=== PATIENT | male | born 1960 | race Caucasian/White ===

== ENCOUNTER 2022-06-17 12:55 | Emergency (ER) | payer SELFPAY ==
[2022-06-17 13:06] VITALS: BP 143/97
[2022-06-17 15:31] LABS: Basophils % (Auto) 0.5 % (0.0-1.8); Eosinophils # (Auto) 0.1 K/mm3 (0.0-0.4); Eosinophils % (Auto) 0.9 % (0.0-4.3); Hematocrit 39.8 % (35.5-45.6); Hemoglobin 12.7 gm/dl (11.8-15.2); Lymphocytes # (Auto) 0.7 K/mm3 (1.2-5.4); Lymphocytes % (Auto) 7.3 % (13.4-35.0); Mean Corpuscular HGB Conc 32 % (32-34); Mean Corpuscular Volume 91 fl (84-94); Monocytes # (Auto) 0.6 K/mm3 (0.0-0.8); Monocytes % (Auto) 5.7 % (0.0-7.3); Platelet Count 239 K/mm3 (140-440); Red Blood Count 4.39 M/mm3 (3.65-5.03); Red Cell Distribution Width 13.5 % (13.2-15.2)
[2022-06-17 15:53] LABS: Alanine Aminotransferase 172 units/L (7-56); Albumin 4.3 g/dL (3.9-5); BUN/Creatinine Ratio 18; Blood Urea Nitrogen 18 mg/dL (9-20); Calcium 9.3 mg/dL (8.4-10.2); Hemolysis Index 5
[2022-06-17] MEDS ORDERED: ONDANSETRON 4 MG/2 ML INJ IV STA (17:23)
[2022-06-17] MEDS ORDERED: fentaNYL NICU 100 MCG/10 ML INJ DILUTION IV STA (17:23)
[2022-06-17] MEDS ORDERED: SODIUM CHLORIDE 0.9% 1000 ML 1,000 ML IV ONE (17:23)
--- NOTE | 2022-06-17 17:38 | Emergency Department Report ---
<MATILDA ESPITIA - Last Filed: 06/17/22 21:09> ED Abdominal Pain HPI - General Chief Complaint: Abdominal Pain Stated Complaint: ABD PAIN Time Seen by Provider: 06/17/22 17:16 Source: patient Mode of arrival: Stretcher Limitations: No Limitations - History of Present Illness Initial Comments: 61-year-old male who presents emerged department complaining of right upper quadrant and epigastric pain for the last 3 to 4days which has become more continuous and severe in symptoms and intensity worsening with deep breathing ra nge of motion and ambulation associated with nausea and decreased bowel movements with no palliative factors noted presents to the emergency department seeking further evaluation and treatment options. He had a similar episode in March of this year where he was seen at [facility] and found to have pancreatitis. He reports no hemoptysis no hematemesis hematochezia, no fever, chills, sweats. MD Complaint: abdominal pain -: Gradual - Related Data Allergies Allergy/AdvReac Type Severity Reaction Status Date / Time No Known Allergies Allergy Unverified 06/17/22 13:06 ED Review of Systems Comment: All other systems reviewed and negative ED Past Medical Hx - Past Medical History Previous Medical History?: No ED Physical Exam - General Limitations: No Limitations General appearance: alert, in no apparent distress - Head Head exam: Present: atraumatic, normocephalic - Eye Eye exam: Present: normal appearance, PERRL, EOMI Pupils: Present: normal accommodation - ENT ENT exam: Present: mucous membranes moist - Neck Neck exam: Present: normal inspection - Respiratory Respiratory exam: Present: normal lung sounds bilaterally. Absent: respiratory distress - Cardiovascular Cardiovascular Exam: Present: regular rate, normal rhythm. Absent: systolic murmur, diastolic murmur, rubs, gallop - GI/Abdominal GI/Abdominal exam: Present: soft, normal bowel sounds - Rectal Rectal exam: Present: deferred - Extremities Exam Extremities exam: Present: normal inspection - Back Exam Back exam: Present: normal inspection - Neurological Exam Neurological exam: Present: alert, oriented X3 - Psychiatric Psychiatric exam: Present: normal affect, normal mood - Skin Skin exam: Present: warm, dry, intact, normal color. Absent: rash ED Medical Decision Making - Lab Data Result diagrams: 06/17/22 14:43 06/17/22 14:42 ED Disposition Clinical Impression: Abdominal pain Condition: Stable Referrals: CARBUCCIA,JOSE, MD [Primary Care Provider] - 3-5 Days <ASHLEY SILVA - Last Filed: 06/17/22 22:10> ED Review of Systems ROS: Stated complaint: ABD PAIN Other details as noted in HPI ED Course Vital Signs 06/17/22 06/17/22 13:01 21:07 Temperature 97.8 F Pulse Rate 83 Respiratory 18 Rate Blood Pressure 143/97 [Left] O2 Sat by Pulse 98 98 Oximetry ED Medical Decision Making - Lab Data Result diagrams: 06/17/22 14:43 06/17/22 14:42 - Radiology Data Radiology results: report reviewed [facility] [address] [place] [address] Cat Scan Report Signed Patient: ELHAM SAMS MR#: [id number] : 1960 Acct:[id number] Age/Sex: 61 / M ADM Date: 06/17/22 Loc: ED Attending Dr: Ordering Physician: TATA MARIE Date of Service: 06/17/22 Procedure(s): CT abdomen pelvis w con Accession Number(s): [id number] cc: TATA MARIE CT ABDOMEN AND PELVIS WITH CONTRAST INDICATION / CLINICAL INFORMATION: RUQ pain. TECHNIQUE: Axial CT images were obtained through the abdomen and pelvis after IV contrast. All CT scans at this location are performed using CT dose reduction for ALARA by means of automated expos ure control. COMPARISON: Abdominal ultrasound of same date FINDINGS: LOWER CHEST: No significant abnormality. LIVER: There is a 2.6 x 3.0 cm hypodense lesion within segment 8/4 of the liver. An additional hypodense lesion is seen at the mick hepatis measuring 1.9 x 1.6 cm. GALLBLADDER: No significant abnormality. BILE DUCTS: Mild intrahepatic biliary ductal dilatation. PANCREAS: No significant abnormality. SPLEEN: No significant abnormality. ADRENALS: No significant abnormality. RIGHT KIDNEY / URETER: No significant abnormality. LEFT KIDNEY / URETER: No significant abnormality. STOMACH / SMALL BOWEL: No significant abnormality. COLON: No significant abnormality. APPENDIX: No significant abnormality. PERITONEUM: No free fluid. No free air. No fluid collection. LYMPH NODES: No significant adenopathy. AORTA / ARTERIES: No significant abnormality. IVC / VEINS: No significant abnormality. URINARY BLADDER: No significant abnormality. REPRODUCTIVE ORGANS: No significant abnormality. ADDITIONAL FINDINGS: None. SKELETAL SYSTEM: No significant abnormality. IMPRESSION: 1. 2 hypodense masses are seen within the liver. Dedicated hepatic mass multiphase CT or MRI is recommended for further characterization as these are concerning for malignancy. 2. Mild colonic diverticulosis without evidence of diverticulitis. Signer Name: Leona Hanson MD Signed: 06/17/2022 9:38 PM Workstation Name: [id number] Transcribed By: Dictated By: LEONA HANSON MD Electronically Authenticated By: LEONA HANSON MD Signed Date/Time: 06/17/222137 DD/ 31 TD/TT: - Medical Decision Making Took over of patient around [address] finding prior to discharge. Patient has received other instructions from prior provider TATA Grewal. IMPRESSION: 1. 2 hypodense masses are seen within the liver. Dedicated hepatic mass multiphase CT or MRI is recommended for further characterization as these are concerning for malignancy. 2. Mild colonic diverticulosis without evidence of diverticulitis. patient and updated on CT report informed to follow-up with GI specialist for further studies. Patient reports a decrease in pain. Patient stable for discharge home. Patient and patient to follow up with GI as he has appt on and recommendation for further studies with advance imaging for liver evaluation based on CT findings. . Critical care attestation.: If time is entered above; I have spent that time in minutes in the direct care of this critically ill patient, excluding procedure time.
[2022-06-17] MEDS ORDERED: fentaNYL 100 MCG/2 ML INJ IV STA (17:57)
--- NOTE | 2022-06-17 18:10 | Ultrasound Report ---
Limited abdominal ultrasound INDICATION: Upper abdominal pain FINDINGS: Visualized portions of the pancreas are unremarkable however pancreatic tail was not well s een. Gallbladder wall is upper limits of normal measuring 3 mm. No definite gallstones are seen. Comm on bile duct measures 4 mm. Right kidney appears normal. Liver measures 14.5 cm. There is a lesion within the right hepatic lobe which is heterogeneous and ir regular measuring 2.9 x 3.1 x 2.7 cm. IMPRESSION: Right hepatic lobe lesion measuring 2.9 x 3.1 x 2.7 cm. Follow-up three-phase liver. Gallbladder wall is upper limits of normal measuring 3 mm. Signer Name: Gentry Stern MD Signed: 06/17/2022 6:06 PM Workstation Name: [id number]
[2022-06-17 18:33] LABS: Hyaline Casts,Urine 3 /LPF; Mucus,Urine 1+ /HPF
[2022-06-17 18:39] LABS: Color,Urine Yellow (Yellow)
[2022-06-17] MEDS ORDERED: KETOROLAC 30 MG/1 ML INJ IV STA (21:17)
[2022-06-17] MEDS ORDERED: HYOSCYAMINE SUBL 0.125 MG TAB SL ONE (21:17)
--- NOTE | 2022-06-17 21:42 | Cat Scan Report ---
CT ABDOMEN AND PELVIS WITH CONTRAST INDICATION / CLINICAL INFORMATION: RUQ pain. TECHNIQUE: Axial CT images were obtained through the abdomen and pelvis after IV contrast. All CT sc ans at this location are performed using CT dose reduction for ALARA by means of automated exposure c ontrol. COMPARISON: Abdominal ultrasound of same date FINDINGS: LOWER CHEST: No significant abnormality. LIVER: There is a 2.6 x 3.0 cm hypodense lesion within segment 8/4 of the liver. An additional hypode nse lesion is seen at the mick hepatis measuring 1.9 x 1.6 cm. GALLBLADDER: No significant abnormality. BILE DUCTS: Mild intrahepatic biliary ductal dilatation. PANCREAS: No significant abnormality. SPLEEN: No significant abnormality. ADRENALS: No significant abnormality. RIGHT KIDNEY / URETER: No significant abnormality. LEFT KIDNEY / URETER: No significant abnormality. STOMACH / SMALL BOWEL: No significant abnormality. COLON: No significant abnormality. APPENDIX: No significant abnormality. PERITONEUM: No free fluid. No free air. No fluid collection. LYMPH NODES: No significant adenopathy. AORTA / ARTERIES: No significant abnormality. IVC / VEINS: No significant abnormality. URINARY BLADDER: No significant abnormality. REPRODUCTIVE ORGANS: No significant abnormality. ADDITIONAL FINDINGS: None. SKELETAL SYSTEM: No significant abnormality. IMPRESSION: 1. 2 hypodense masses are seen within the liver. Dedicated hepatic mass multiphase CT or MRI is recom mended for further characterization as these are concerning for malignancy. 2. Mild colonic diverticulosis without evidence of diverticulitis. Signer Name: Christian Hanson MD Signed: 06/17/2022 9:38 PM Workstation Name: [id number]
[2022-06-17] MEDS ORDERED: oxyCODONE /ACETAMINOPHEN 5-325MG TAB PO ONE (22:08)
== END 2022-06-17 22:53 | disposition home or self-care (01) ==
LOC: ED 12:55
DX: R10.9 Unspecified abdominal pain (principal)
CPT/HCPCS: 36415; 74177; 76705; 80053; 81001; 83690; 85025; 96361; 96374; 96375; 99284; J1885; J2405; J3010; J7030; Q9967